=== PATIENT | female | born 1935 | race Caucasian/White ===

== ENCOUNTER → 2019-04-18 | Day surgery (SDC) | payer MEDICARE ==
[2019-04-14 11:37] LABS: BASOPHILS % 0.2 % (0.0-1.0); EOSINOPHILS # (AUTO) 0.1 (0.0-0.4); EOSINOPHILS % 1.6 % (0.0-6.0); HEMATOCRIT 41.1 % (34.2-44.1); HEMOGLOBIN 13.2 g/dL (12.0-16.0); LYMPHOCYTES # (AUTO) 2.6 (1.0-3.2); MEAN CORPUSCULAR HEMOGLOBIN 30.1 pg (28-32); MEAN CORPUSCULAR HGB CONC 32.1 g/dL (31-35); MEAN CORPUSCULAR VOLUME 93.8 fL (81-99); MONOCYTES # (AUTO) 0.5 (0.2-0.8); MONOCYTES % 6.2 % (4.4-11.3); NEUTROPHILS # (AUTO) 5.4 (2.1-6.9); NEUTROPHILS % 61.8 % (38.7-80.0); PLATELET COUNT 378 x10e3/uL (140-360); RED BLOOD COUNT 4.38 x10e6/uL (3.6-5.1); RED CELL DISTRIBUTION WIDTH 13.2 % (11.7-14.4)
[~2019-04-18] MED LIST: BACLOFEN10 MG PO; DIAZEPAM5 MG PO; FUROSEMIDE40 MG PO; GEMFIBROZIL600 MG PO; GLUCAGON FOR INJ 1 MG VIAL ONE; LEVOTHYROXINE100 MC1 PO; LIDOCAINE HCL 2% LOCAL INJ 5 ML SDV VIAL INJ ONE; METFORMIN HCL500 MG PO; METOPROLOL SUCC50 MG PO; NORCO 5-325 TA1 EACH PO; POTASSIUM CHLO10 ME1 PO; PROPOFOL IV EMULSION 10 MG/ML 50 ML VIAL ONE
--- OUTSIDE RECORDS SUMMARY | 2019-04-18 07:57 | XMS REPORT | Summary of Care ---
Author Author [facility] [place] [facility] [place] Address Unknown Phone Unavailable Encounter HQ Encntr_alias(FIN) [id number] Date(s): 08/07/15 - 08/07/15 [facility] [place] [address] [facility] [place] [id number] [phone] Discharge Disposition: Home Attending Physician: Santiago Velázquez MD Vital Signs No data available for this section Problem List No data available for this section Allergies, Adverse Reactions, Alerts No data available for this section Medications No data available for this section Results No data available for this section Immunizations No data available for this section Procedures No data available for this section Social History No data available for this section Assessment and Plan No data available for this section
--- OUTSIDE RECORDS SUMMARY | 2019-04-18 07:57 | XMS REPORT | Continuity of Care Document ---
Author Author [employer] Address Unknown Phone Unavailable Care Team Providers Care Lease Attendant Name Role Phone [employer] Information [employer] Unavailable Unavailable Problems Problem Status Onset Date Classification Date Reported Comments Source Hemoptysis 08/20/2018 03/07/2019 [facility] [place] LAP HERNIA REPAIR Active 12/20/2017 [facility] Unspecified abdominal hernia without obstruction or gangrene 11/13/2017 02/14/2018 [facility] [place] I10 - ESSENTIAL (PRIMARY) HYPERTENSI K43 Active 11/01/2017 [facility] [place] M25.579 - PAIN IN UNSPECIFIED ANKLE AND Active 08/07/2015 [facility] [place] Diabetes mellitus (disorder) Active Problem 03/11/2019 [facility] [place], [facility] [place] Hypothyroidism (disorder) Active Problem 03/11/2019 [facility], [facility] [place], [facility] [place] Morbid obesity (disorder) Active Problem 03/11/2019 [facility], [facility] [place], [facility] [place] Osteoarthritis (disorder) Active Problem 03/11/2019 [facility], [facility] [place], [facility] [place] Paraparesis (disorder) Active Problem 03/11/2019 [facility], [facility] [place] [place] Peripheral vascular disease (disorder) Active Problem 03/11/2019 [facility] [place] [place] Spinal stenosis (disorder) Active Problem 03/11/2019 [facility], [facility] [place], [facility] [place] Abnormal weight loss 03/07/2019 [facility] [place] Edema, unspecified 03/07/2019 [facility] [place] Personal history of nicotine dependence 03/07/2019 [facility] [place] Type 2 diabetes mellitus without complications 03/07/2019 [facility] [place] Acute pharyngitis, unspecified 03/07/2019 [facility] [place] Cellulitis of abdominal wall 02/14/2018 [facility] [place] Essential (primary) hypertension 02/14/2018 [facility] [place] Diverticulosis of intestine, part unspecified, without perforation or abscess without bleeding 02/14/2018 [facility] [place] Calculus of gallbladder without cholecystitis without obstruction 02/14/2018 [facility] [place] Medications Medication Details Route Status Patient Instructions Ordering Provider Order Date Source Acetaminophen 325 MG / Hydrocodone Bitartrate 5 MG Oral Tablet 1 tab, PO, Q4H, PRN Pain Score 1-3, 0 Refill(s) Active 12/30/2017 [facility] phenol 1 spray, Route: TOP, Daily, Drug form: SPRY, PRN Sore Throat, Start date: 12/29/17 16:17:00 CDT, Duration: 30 day, Stop date: 01/28/18 16:16:00 CDTNotes: WASTE: F/P - Black; E - [employer] Bin No Longer Active 12/29/2017 [facility] Benzocaine 15 MG / Menthol 3.6 MG Lozenge [Cepacol Sore Throat Pain Relief 15/3.6] 1 lozenge, Route: MUCOUS MEM, Drug Form: NICHOL, Dosing Weight 86.591, kg, Q2H, PRN Sore Throat, Start date: 12/29/17 16:17:00 CDT, Duration: 30 day, Stop date: 01/28/18 16:16:00 CDTNotes: Same as: Cepacol No Longer Active 12/29/2017 [facility] Valium 5 mg, 1 tab, Route: PO, Drug form: TAB, BID, Dosing Weight 86.591, kg, PRN as needed for anxiety, Start date: 12/29/17 9:54:00 CDT, Duration: 30 day, Stop date: 01/28/18 9:53:00 CDTNotes: (Same as: Valium) No Longer Active 12/29/2017 [facility] Baclofen 10 mg, 1 tab, Route: PO, Drug form: TAB, BID, Dosing Weight 86.591, kg, PRN Spasm, Start date: 12/29/17 9:54:00 CDT, Duration: 30 day, Stop date: 01/28/18 9:53:00 CDTNotes: (Same As: Lioresal) No Longer Active 12/29/2017 [facility] Furosemide 20 MG Oral Tablet 20 mg, 1 tab, Route: PO, Drug form: TAB, Daily, Dosing Weight 86.591, kg, Start date: 12/29/17 9:00:00 CDT, Duration: 30 day, Stop date: 01/27/18 9:00:00 CDTNotes: (Same as: Lasix) May cause GI upset. Give with food or milk. No Longer Active 12/29/2017 [facility] Thyroxine 100 microgram, 1 tab, Route: PO, Drug form: TAB, [id number], Dosing Weight 86.591, kg, Start date: 12/29/17 6:30:00 CDT, Duration: 30 day, Stop date: 01/27/18 6:30:00 CDTNotes: Take 1 hour before or 2 hours after meal; Enteral feeds may interefere with the absorption of this medication. (Same as:Levothroid, Synthroid) No Longer Active 12/29/2017 [facility] Enoxaparin 40 mg, 0.4 mL, Route: SUB-Q, Drug form: INJ, [id number], Dosing Weight 86.591, kg, Start date: 12/29/17 2:00:00 CDT, Stop date: 01/27/18 2:00:00 CDTNotes: (Same as: Lovenox) No Longer Active 12/29/2017 [facility] Potassium Chloride 10 mEq, 1 tab, Route: PO, Drug form: ERTAB, BID, Dosing Weight 86.591, kg, Start date: 12/28/17 17:00:00 CDT, Duration: 30 day, Stop date: 01/27/18 9:00:00 CDTNotes: (Same as: K-Dur 10) "Do Not Crush" With food and full glass of water No Longer Active 12/28/2017 [facility] Metformin hydrochloride 500 MG Oral Tablet 500 mg, 1 tab, Route: PO, Drug form: TAB, BID-Meals, Dosing Weight 86.591, kg, Start date: 12/28/17 17:00:00 CDT, Duration: 30 day, Stop date: 01/27/18 8:00:00 CDTNotes: (Same as: Glucophage) Take with meal No Longer Active 12/28/2017 [facility] Docusate Sodium 100 MG Oral Capsule 100 mg, 1 cap, Route: PO, Drug form: CAP, BID, Dosing Weight 86.591, kg, Start date: 12/28/17 17:00:00 CDT, Duration: 30 day, Stop date: 01/27/18 9:00:00 CDTNotes: (Same as: Colace) (Do Not Crush) No Longer Active 12/28/2017 [facility] morphine Sulfate 12 mg, 6 mL, Route: PO, Drug form: SOLN, Q4H, PRN Pain Score 7-10, Start date: 12/28/17 15:57:00 CDT, Duration: 30 day, Stop date: 01/27/18 15:56:00 CDTNotes: (Same as:MORPhine Sulfate) No Longer Active 12/28/2017 [facility] Hydralazine 10 mg, Route: IVP, Q20Min, Dosing Weight 86.591, kg, PRN Elevated BP, Start date: 12/28/17 14:27:00 CDT, Duration: 2 doses or times, Stop date: Limited # of times Inactive 12/28/2017 [facility] Hydromorphone 0.5 mg, Route: IVP, Q5Min, Dosing Weight 86.591, kg, PRN Pain Score 7-10, Start date: 12/28/17 14:27:00 CDT, Duration: 4 doses or times, Stop date: Limited # of times Inactive 12/28/2017 [facility] Fentanyl 50 microgram, Route: IVP, Q5Min, Dosing Weight 86.591, kg, PRN Pain Score 7-10, Priority: Routine, Start date: 12/28/17 14:27:00 CDT, Duration: 2 doses or times, Stop date: Limited # of times Inactive 12/28/2017 [facility] Flumazenil 0.2 mg, Route: IVP, PRN, Dosing Weight 86.591, kg, PRN Benzodiazepine Reversal, Initial dose, Start date: 12/28/17 14:27:00 CDT, Duration: 30 day, Stop date: 01/27/18 14:26:00 CDT Inactive 12/28/2017 [facility] Oxycodone 10 mg, Route: PO, Drug form: TAB, Q4H, Dosing Weight 86.591, kg, PRN Pain Score 7-10, Start date: 12/28/17 14:27:00 CDT, Duration: 30 day, Stop date: 01/27/18 14:26:00 CDT Inactive 12/28/2017 [facility] Promethazine 6.25 mg, Route: IVPB, ONCE, Dosing Weight 86.591, kg, PRN Nausea & Vomiting, Start date: 12/28/17 14:27:00 CDT Inactive 12/28/2017 [facility] Meperidine 12.5 mg, Route: IVP, Q30Min, Dosing Weight 86.591, kg, PRN Other -See Comment, For shivering, Start date: 12/28/17 14:27:00 CDT, Duration: 2 doses or times, Stop date: Limited # of times Inactive 12/28/2017 [facility] Naloxone 0.1 mg, Route: SUB-Q, Q6H, Dosing Weight 86.591, kg, PRN Itching, Start date: 12/28/17 14:27:00 CDT, Duration: 30 day, Stop date: 01/27/18 14:26:00 CDT Inactive 12/28/2017 [facility] Albuterol 0.83 MG/ML Inhalant Solution 2.49 mg, Route: NEB, Q20Min, Dosing Weight 86.591, kg, PRN Wheezing, Priority: Routine, Start date: 12/28/17 14:27:00 CDT, Duration: 30 day, Stop date: 01/27/18 14:26:00 CDT Inactive 12/28/2017 [facility] Diphenhydramine 12.5 mg, Route: IVP, Drug form: INJ, Q6H, Dosing Weight 86.591, kg, PRN Itching, Start date: 12/28/17 14:27:00 CDT, Duration: 30 day, Stop date: 01/27/18 14:26:00 CDT Inactive 12/28/2017 [facility] Ondansetron 4 mg, Route: IVP, ONCE, Dosing Weight 86.591, kg, PRN Nausea & Vomiting, Start date: 12/28/17 14:27:00 CDT Inactive 12/28/2017 [facility] Ketorolac 30 mg, Route: IVP, ONCE, Dosing Weight 86.591, kg, Start date: 12/28/17 14:27:00 CDT, Stop date: 12/28/17 14:27:00 CDT Inactive 12/28/2017 [facility] Acetaminophen 1,000 mg, Route: PO, Drug form: TAB, ONCE, Dosing Weight 86.591, kg, PRN Pain Score 1-3, Start date: 12/28/17 14:27:00 CDT Inactive 12/28/2017 [facility] Labetalol 10 mg, Route: IVP, Q5Min, Dosing Weight 86.591, kg, PRN Elevated BP, Start date: 12/28/17 14:27:00 CDT, Duration: 5 doses or times, Stop date: Limited # of times Inactive 12/28/2017 [facility] metoprolol (ANES) Route: IV, Drug form: INJ, ONCE, Stop date: 12/28/17 14:15:00 CDT Inactive 12/28/2017 [facility] metoclopramide (ANES) Route: IV, Drug form: INJ, ONCE, Stop date: 12/28/17 14:15:00 CDT Inactive 12/28/2017 [facility] neostigmine (ANES) Route: IV, Drug form: INJ, ONCE, Stop date: 12/28/17 14:14:00 CDT Inactive 12/28/2017 [facility] glycopyrrolate (ANES) Route: IV, Drug form: INJ, ONCE, Stop date: 12/28/17 14:14:00 CDT Inactive 12/28/2017 [facility] hydrALAZINE (ANES) Route: IV, Drug form: INJ, ONCE, Stop date: 12/28/17 14:04:00 CDT Inactive 12/28/2017 [facility] Diphenhydramine 25 mg, 1 tab, Route: PO, Drug form: TAB, Bedtime, Dosing Weight 86.591, kg, PRN Insomnia, Start date: 12/28/17 13:56:00 CDT, Duration: 30 day, Stop date: 01/27/18 13:55:00 CDT No Longer Active 12/28/2017 [facility] Ondansetron 4 mg, 1 tab, Route: PO, Drug form: TAB, Q6H, Dosing Weight 86.591, kg, PRN Nausea & Vomiting, Start date: 12/28/17 13:56:00 CDT, Duration: 30 day, Stop date: 01/27/18 13:55:00 CDTNotes: (Same as: Zofran) No Longer Active 12/28/2017 [facility] Morphine 4 mg, Route: IVP, Q2H, Dosing Weight 86.591, kg, PRN Pain Score 1-3, Start date: 12/28/17 13:56:00 CDT, Duration: 30 day, Stop date: 01/27/18 13:55:00 CDT Inactive 12/28/2017 [facility] Acetaminophen 325 MG / Hydrocodone Bitartrate 5 MG Oral Tablet 1 tab, Route: PO, Drug Form: TAB, Dosing Weight 86.591, kg, Q4H, PRN Pain Score 1-3, Start date: 12/28/17 13:56:00 CDT, Duration: 30 day, Stop date: 01/27/18 13:55:00 CDTNotes: (Same as: [place] 325/5) Do not exceed 4gm/day of acetaminophen. No Longer Active 12/28/2017 [facility] Acetaminophen 325 MG / Hydrocodone Bitartrate 10 MG Oral Tablet 1 tab, Route: PO, Drug Form: TAB, Dosing Weight 86.591, kg, Q4H, PRN Pain Score 4-6, Start date: 12/28/17 13:56:00 CDT, Duration: 30 day, Stop date: 01/27/18 13:55:00 CDTNotes: Do not exceed 4gm/day of acetaminophen. (Same as: [place] 325/10) No Longer Active 12/28/2017 [facility] acetaminophen (ANES) Route: IV, Drug form: INJ, ONCE, Stop date: 12/28/17 13:04:00 CDT Inactive 12/28/2017 [facility] midazolam (ANES) Route: IV, Drug form: SOLN, ONCE, Stop date: 12/28/17 13:04:00 CDT Inactive 12/28/2017 [facility] rocuronium (ANES) Route: IV, Drug form: INJ, ONCE, Stop date: 12/28/17 13:04:00 CDT Inactive 12/28/2017 [facility] fentaNYL (ANES) Route: IV, Drug form: INJ, ONCE, Stop date: 12/28/17 13:04:00 CDT Inactive 12/28/2017 [facility] lidocaine (ANES) Route: IV, Drug form: INJ, ONCE, Stop date: 12/28/17 13:04:00 CDT Inactive 12/28/2017 [facility] Amidate (ANES) Route: IV, Drug form: INJ, ONCE, Stop date: 12/28/17 13:04:00 CDT Inactive 12/28/2017 [facility] propofol (ANES) Route: IV, Drug form: INJ, ONCE, Stop date: 12/28/17 13:04:00 CDT Inactive 12/28/2017 [facility] ceFAZolin (ANES) Route: IV, Drug form: INJ, ONCE, Stop date: 12/28/17 12:59:00 CDT Inactive 12/28/2017 [facility] Lactated Ringers Injection IV (ANES) 1000 mL Route: IV, Total Volume: 1,000, Start date: 12/28/17 12:03:00 CDT, Stop date: 12/28/17 13:03:00 CDT Inactive 12/28/2017 [facility] diazepam 5 mg oral tablet 5 mg=1 tab, PO, BID, 0 Refill(s) Active 12/01/2017 [facility] metoprolol 100 mg oral tablet, extended release 100 mg=1 tab, PO, Daily, # 30 tab, 0 Refill(s) Active 12/01/2017 [facility] omega-3 polyunsaturated fatty acids PO, 0 Refill(s) Active 12/01/2017 [facility] Furosemide 20 MG Oral Tablet 20 mg=1 tab, PO, Daily, # 30 tab, 0 Refill(s) Active 12/01/2017 [facility] Potassium Chloride 0 Refill(s) Active 12/01/2017 [facility] levothyroxine 100 mcg (0.1 mg) oral tablet 100 microgram=1 tab, PO, Daily, # 30 tab, 0 Refill(s) Active 12/01/2017 [facility] Acetaminophen 325 MG / Hydrocodone Bitartrate 5 MG Oral Tablet 1 tab, PO, Q4H, PRN for pain, # 42 tab, 0 Refill(s) Active 12/01/2017 [facility] baclofen 10 mg oral tablet 10 mg=1 tab, PO, BID, 0 Refill(s) Active 12/01/2017 [facility] Gemfibrozil See Instructions, 100mg PO daily, 0 Refill(s) Active 12/01/2017 [facility] Metformin hydrochloride 500 MG Oral Tablet 500 mg=1 tab, PO, BID-Meals, # 60 tab, 0 Refill(s) Active 12/01/2017 [facility] Allergies, Adverse Reactions, Alerts Substance Category Reaction Severity Reaction type Status Date Reported Comments Source No Known Medication Allergies Assertion Drug allergy [facility] [place] Immunizations No Data Provided for This Section Results Order Name Results Value Reference Range Date Interpretation Comments Source CHEM PANEL eGFR 84 12/23/2017 Result Comment: The eGFR is calculated using the CKD-EPI formula. In most young, healthy individuals the eGFR will be >90 mL/min/1.73m2. The eGFR declines with age. An eGFR of 60-89 may be normal in some populations, particularly the elderly, for whom the CKD-EPI formula has not been extensively validated. Use of the eGFR is not recommended in the following populations:

Individuals with unstable creatinine concentrations, including patients and those with serious co-morbid conditions.

Patients with extremes in muscle mass or diet.

The data above are obtained from the National Kidney Disease Education Program (NKDEP) which additionally recommends that when the eGFR is used in patients with extremes of body mass index for purposes of drug dosing, the eGFR should be multiplied by the estimated BMI. [facility] CHEM PANEL Calcium Lvl 10.5 8.5 - 10.5 12/23/2017 [facility] CHEM PANEL AGAP 11.2 10.0 - 20.0 12/23/2017 [facility] CHEM PANEL Chloride Lvl 103 95 - 109 12/23/2017 [facility] CHEM PANEL Potassium Lvl 5.2 3.5 - 5.1 12/23/2017 [facility] CHEM PANEL CO2 32 24 - 32 12/23/2017 [facility] CHEM PANEL Creatinine Lvl 0.65 0.50 - 1.40 12/23/2017 [facility] CHEM PANEL Sodium Lvl 141 135 - 145 12/23/2017 [facility] CHEM PANEL Glucose Lvl 90 70 - 99 12/23/2017 [facility] CHEM PANEL BUN 17 7 - 22 12/23/2017 [facility] Pathology Reports No Data Provided for This Section Diagnostic Reports Report Value Date Source Chest w contrast CT EXAM: CT CHEST WITH CONTRAST DATE: 03/09/2019 12:30 CDT INDICATION: - lung nodule COMPARISON: CT chest 08/17/2018 TECHNIQUE: Volumetric CT of the chest is acquired following intravenous administration of contrast. Axial, coronal and sagittal images are provided. IV Contrast: 100 Omnipaque 300. DLP (mGy-cm): 1991 FINDINGS: Lines, tubes and hardware: None. Lower neck: The visible portions of the lower neck and thyroid are unremarkable. Axilla: Clear. Airway: Patent. Lungs and pleura: Few bilateral upper lobe pulmonary nodules remain and are less than 2 mm (annotated on images 39, 40, 72, 75, and 101. Few scattered thin- walled pulmonary cysts. No pleural effusion or pneumothorax. Mediastinum, cony and intrathoracic lymph nodes: Normal. Heart, pericardium and great vessels: Three-vessel coronary artery calcifications. The heart is normal in size. There is normal size of the pulmonary artery and ascending aorta. Severe dense calcified atherosclerotic plaque again involves the abdominal aorta. 5 mm fissural nodule is present at the right middle lobe on series 3, image 137. Few punctate nodules again remain in the apices bilaterally. Upper abdomen: There is a new well-circumscribed 1.6 cm hypodensity in the anterior pancreatic body. Thickening of the right adrenal gland. Cholelithiasis. Bones: No acute abnormality. Degenerative changes of the thoracic spine. Soft tissues: Normal. IMPRESSION: 1. Stable bilateral upper lobe punctate pulmonary nodules, annotated above measuring less than 2 mm, likely benign. 2. Severely dense atherosclerotic calcified plaque the abdominal aorta, unchanged. 3. Stable thickening of the right adrenal gland. 4. Larger cystic focus in the pancreatic body anteriorly, more conspicuous today measuring 1.5 cm. Recommendations: Single f/u in 1 year, preferably MRI. Consider decreasing interval if younger, and omitting if limited life expectancy. THEN: If stable: no further f/u. If growth: Imaging characterization, preferably MRI/MRCP. REFERENCE: Reta Cui et al. Managing Incidental Findings on Abdominal CT: White Paper of the ACR Incidental Findings Committee. J Am Dottie Radiol 2010; 7: [phone] 03/09/2019 [facility] Abdomen/Pelvis w IV contrast CT EXAM: CT ABDOMEN AND PELVIS WITH CONTRAST DATE: 03/09/2019 12:30 CDT INDICATION: - weight loss, anemia and lung nodules. ADDITIONAL INFORMATION: History of prior hernia repair and removal of cyst or fibroid from abdomen. COMPARISON: 11/08/2017. TECHNIQUE: Volumetric CT acquisition of the abdomen and pelvis after intravenous contrast. Axial, coronal and sagittal reconstructions. Postcontrast phases: Venous and delayed. IV contrast: 100 cc Omnipaque 300 Oral contrast: 450 cc Redicat. DLP: 1992 mGy-cm FINDINGS: Lines and tubes: None. Lower thorax: For details on the included portions of the lower thorax, please in the separate CT scan of the chest performed concurrently with this exam. Liver: Normal. Biliary tree: No intra- or extrahepatic biliary ductal dilation. Gallbladder: Cholelithiasis is present with predominantly noncalcified stones with no gallbladder wall thickening or pericholecystic inflammatory changes Pancreas: Atrophic and partially fatty replaced. No focal abnormalities. Spleen: Normal. Adrenals: Diffusely thickened bilaterally with no discrete nodules or masses. This finding is stable.. Kidneys and ureters: The kidneys enhance symmetrically and normally with prompt excretion of contrast material. No hydronephrosis, masses, or calculi are seen. The ureters are of normal course and caliber with no constricting or obstructing lesions. Bladder: Normal. Reproductive organs: Arcuate arterial calcifications are seen in the uterus. No adnexal abnormalities are seen. Calcified phleboliths are seen in the periuterine and periadnexal region. Gastrointestinal tract: A small sliding esophageal hiatal hernia is present. The stomach is otherwise normal in appearance. Scattered colonic diverticuli are present with no CT evidence of acute diverticulitis. Within the cecum along the anterior wall of (image 104 series 6 and image 103 series 400, there is a soft tissue density enhancing mass/wall thickening measuring 3.4 x 1.2 x 2.9 cm highly concerning for colonic malignancy. No distinct direct extension beyond the serosa of the colon is demonstrated. However, 3 separate lymph nodes measuring up to 6 mm in maximal diameter are seen anterior to the cecum/ascending colon on images 88 through 92 of series 6 concerning for possible metastatic disease. A fat density intraluminal filling defect measuring 0.8 x 1.2 x 1.5 cm is seen in the second portion of the duodenum on image 67 of series 6, increased in size from the prior exam. No other small bowel pathology is detected. No abnormalities of the rectum or anus are seen. Appendix: Not visualized. Peritoneum and retroperitoneum: No lymphadenopathy, ascites or free air. Lymph nodes: No abdominal or pelvic lymphadenopathy by size criteria is seen. Small anterior pericecal/pericolonic lymph nodes are present adjacent to the mass described above. Vasculature: Severe atherosclerotic vascular disease of the aortoiliac system is seen with severe aortic stenosis at multiple levels in the infrarenal abdominal aorta secondary to calcified atherosclerotic plaque up to approximately 90%. No occlusion is detected. No other abnormalities of the abdominal aorta, inferior vena cava, portal venous system, or other major visualized branches are detected. Bones: Multilevel spondylosis, disc space during, vacuum phenomenon, and endplate sclerosis are seen in the inferior thoracic and lumbar spine. No osseous destructive lesions are seen. Osteoarthritic changes are present at the symphysis pubis joint and in the bilateral hip joints, right-sided greater than left. Facet joint osteoarthritic changes are present in the lower lumbar spine.. Soft tissues/abdominal wall: A small fat-containing indirect left inguinal hernia is present with no surrounding or internal inflammatory changes. A large ventral abdominal wall hernia has been repaired in the interim. No recurrent or residual ventral hernia is detected. IMPRESSION: 1. Sessile 3.4 x 1.2 x 2.9 cm anterior cecal wall mass, new from the prior exam, and highly concerning for colonic malignancy. No direct extra serosal invasion is seen. However, several small lymph nodes are seen adjacent to this mass concerning for local metastatic disease. 2. Fat density mass within the second portion the duodenum measuring 0.8 x 1.2 x 1.5 cm, increased in size from the prior exam of 11/08/2017. Although most likely a benign mucosal/submucosal lipoma of the small bowel, with interim growth, a low-grade malignancy is not excluded. 3. Severe multifocal infrarenal abdominal aortic stenosis secondary to calcified atherosclerotic plaque formation. No occlusion is seen. 4. Colonic diverticulosis with no CT evidence of acute diverticulitis. 5. Cholelithiasis with no CT evidence of acute cholecystitis. 6. Small sliding esophageal hiatal hernia. 7. Status post prior ventral hernia repair. No recurrent ventral hernia is detected. A small fat-containing indirect left inguinal hernia is stable from the prior exam. 8. Bilateral adrenal gland thickening, as seen on the prior exam, and likely from bilateral mild adrenal hyperplasia. 9. For details on the included portions of the chest, please see the separate CT scan of the chest performed concurrently with this exam. 03/09/2019 [facility] Ext Lower Venous Doppler Bilat US EXAM: US BILATERAL LOWER EXTREMITY VENOUS DOPPLER DATE: 08/17/2018 12:52 WINDOWS ADMINISTRATOR INDICATION: - R60.9 Edema, unspecified. Right leg swelling for the past one year. Left leg swelling for the past 2 months. ADDITIONAL INFORMATION: None. COMPARISON: None. TECHNIQUE: Multiplanar grayscale, color Doppler and spectral Doppler ultrasound images of the bilateral lower extremity veins. FINDINGS: Right Thigh Veins: Common Femoral: Patent. Femoral (SFV): Patent. Popliteal: Patent. Proximal Greater Saphenous: Patent. Deep Femoral Veins: Patent. Right Calf Veins: Limited evaluation secondary to edema Paired Peroneal: One of the two paired veins is patent with the other not seen. Posterior Tibial Calf: One of the two paired veins is patent with the other not seen. Left Thigh Veins: Common Femoral: Patent. Femoral (SFV): Patent. Popliteal: Patent. Proximal Greater Saphenous: Patent. Deep Femoral Veins: Patent. Left Calf Veins: Limited evaluation secondary to edema Paired Peroneal: Not visualized. Posterior Tibial Calf: Patent. IMPRESSION: 1. No deep venous thrombosis in the bilateral thighs. 2. Visualized veins of the calves are patent with limited evaluation, as listed above, secondary to soft tissue edema in both calves. 08/17/2018 [facility] Sinus paranasal series DX EXAM: X-RAY PARANASAL SINUSES 3 VIEWS DATE: 08/17/2018 12:41 WINDOWS ADMINISTRATOR INDICATION: - HEMOPTYSIS COMPARISON: None TECHNIQUE: [place], [place], and lateral views FINDINGS: No mucoperiosteal thickening, air-fluid levels, or soft tissue masses are seen involving the well aerated paranasal sinuses. Nasal septum is midline. Mastoid air cells are well aerated. Dental hardware is visualized. IMPRESSION: No radiographic evidence of sinusitis. The paranasal sinuses and mastoid air cells are well aerated. 08/17/2018 [facility] Chest 2 views DX EXAM: XR CHEST 2 VIEWS DATE: 08/17/2018 12:40 WINDOWS ADMINISTRATOR INDICATION: - HEMOPTYSIS COMPARISON: 05/19/2011 TECHNIQUE: PA and lateral chest radiographs FINDINGS: Mild linear subsegmental atelectasis is seen in the left retrocardiac region best seen on the PA view. No other lung parenchymal or pleural abnormalities are seen. Cony and pulmonary vasculature are normal. Cardiomediastinal silhouette is normal in appearance. Atherosclerotic calcifications are seen in the aortic arch. No acute bony abnormality is identified. Thoracolumbar spine is noted be moderately kyphotic with multilevel spondylosis and disc space narrowing. Degenerative enthesopathic changes are seen in the bilateral humeral greater tuberosity rotator cuff insertion sites. IMPRESSION: 1. Mild linear subsegmental atelectasis in the left lung base. 2. Increase in atherosclerotic vascular disease of the aortic arch. 3. 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 TECHNIQUE: Volumetric CT acquisition of the chest was obtained following the intravenous administration of contrast. Sagittal, coronal and axial MIP reformatted images were reconstructed and obtained at the workstation. I.V. Contrast Dose: 100 mL Omnipaque 300 contrast Total Exam DLP: 602.08 mGy-- cm COMPARISON: No prior chest CT is available for comparison. FINDINGS: Heart is not enlarged. Aortic atherosclerosis with calcifications. Ascending aorta does not measure enlarged. The pulmonary trunk is borderline sized at 29 mm. Diffuse calcifications of the left anterior descending, left circumflex and right coronary arteries. No pericardial effusion. There are no pleural effusions. No enlarged hilar, mediastinal or axillary lymph nodes. Limited imaging through the upper abdomen shows severe calcifications of the abdominal aorta resulting in significant narrowing of the lumen. Scattered arterial calcifications throughout the abdomen. Right adrenal gland is thickened. Dependent sludge and/or cholelithiasis noted in the gallbladder. Trachea and central bronchi are clear. Dependent atelectasis in the bilateral lower lobes. A few punctate pulmonary nodules are noted in both lung apices, predominantly in the right upper lobe. Calcified granuloma in the lingula. No pulmonary consolidation. Advanced degenerative changes of the thoracic spine with disc space narrowing, subchondral sclerosis, marginal osteophytes and several vacuum disks. There is curvature of the thoracic spine. IMPRESSION: 1. Aortic atherosclerosis with calcifications. Diffuse coronary artery calcifications. 2. Limited imaging through the upper abdomen shows severe calcifications of the abdominal aorta resulting in significant narrowing of the lumen. 3. A few punctate pulmonary nodules are noted in both upper lobes, mostly the right upper lobe. -- According to the Fleischner Society 2017 Guidelines for management of pulmonary nodules, a low risk patient with multiple nodules measuring less than 6 mm does not require routine follow-up. For a high risk patient, multiple nodules measuring less than 6 mm can be followed with a repeat chest CT at 12 months. 4. Advanced degenerative changes of the thoracic spine. 5. Dependent sludge and/or cholelithiasis in the gallbladder. 08/17/2018 [facility] Abdomen/Pelvis w/wo IV contrast CT EXAM: CT ABDOMEN AND PELVIS WITH AND WITHOUT CONTRAST DATE: 11/08/2017 12:59 PM CDT INDICATION: - abdominal hernia; K43.9 Ventral hernia without obstruction or gangrene; L03.311 Cellulitis of abdominal wall ADDITIONAL INFORMATION: None. COMPARISON: None. TECHNIQUE: Volumetric CT acquisition of the abdomen and pelvis before and after the intravenous administration contrast. Axial, coronal and sagittal reconstructions. Postcontrast phases: Venous and delayed IV contrast: 100 mL Omnipaque Oral contrast: Omni mix CT Radiation Dose DLP 1966 mGy-cm AEC, mA/kV adjustment by patient size, and/or iterative reconstruction technique were used, per departmental dose-optimization program. FINDINGS: Lines and tubes: None. Lower thorax: Unremarkable. Liver and biliary tree: Normal. Gallbladder: Contains sludge and/or gallstones. Pancreas: Normal. Spleen: Normal. Adrenals: Normal. Kidneys and ureters: Possible punctate nonobstructing left renal calculus. Otherwise unremarkable. No hydronephrosis. Bladder: Normal. Reproductive organs: Atrophic Gastrointestinal tract: Colonic diverticulosis. Otherwise unremarkable with normal caliber. Appendix: Not visualized Peritoneum and retroperitoneum: No ascites or free air. Lymph nodes: No pathologic adenopathy. Vasculature: Severe atherosclerotic calcification throughout the aorta and iliac arteries Bones: No acute abnormality. Moderate to severe multilevel degenerative disease throughout the visualized spine Soft tissues: Large periumbilical small bowel containing hernia with a 4.7 x 3.4 cm neck without evidence of incarceration IMPRESSION: 1. Large periumbilical small bowel containing hernia. 2. Colonic diverticulosis. 3. Cholelithiasis. 11/08/2017 [facility] Foot series DX Left Foot History: Pain Comparison: None Findings: The left foot first toe proximal phalanx has a lucent fracture line at the first extending to the first MTP joint. Fracture corresponds to a small fragment at the medial aspect of the proximal phalanx. There is no significant displacement. The fracture line appears lucent and is approximately 1 mm wide. The first MTP sesamoids are unremarkable. The metatarsals are intact. The plantar arch is maintained. The hindfoot is normal. The joint spaces are maintained for age. No radiopaque foreign bodies seen. Impression: Left foot fracture at the first toe proximal phalanx. A medial fragment is fractured extending to the first MTP joint without displacement. 08/07/2015 [facility] Ankle 3 views DX LEFT ANKLE X-RAY EXAM, 3 VIEWS History: 80-year-old with ankle pain. Comparison: None. Findings: No acute fracture or subluxation seen. The medial and lateral malleoli are normal. The posterior tibia is normal. The ankle joint space is well maintained. Soft tissues surrounding the ankle are diffuse swollen in particular at the medial malleolus suggesting an ankle sprain. IMPRESSION: No fracture or acute bone injury. Soft tissue swelling around ankle consistent with a ankle sprain. 08/07/2015 [facility] Consultation Notes No Data Provided for This Section Discharge Summaries No Data Provided for This Section History and Physicals No Data Provided for This Section Vital Signs Vital Sign Value Date Comments Source Height 157.48 cm 01/12/2018 [facility] Systolic (mm Hg) 130 01/12/2018 [facility] Diastolic (mm Hg) 74 01/12/2018 [facility] Heart Rate 87 01/12/2018 [facility] Temperature Oral (F) 98.0 F 01/12/2018 [facility] Respitory Rate 16 12/30/2017 [facility] Systolic (mm Hg) 147 12/30/2017 [facility] Diastolic (mm Hg) 74 12/30/2017 [facility] Respitory Rate 16 12/30/2017 [facility] Heart Rate 92 12/30/2017 [facility] Temperature Oral (F) 98.0 F 12/30/2017 [facility] Respitory Rate 20 12/30/2017 [facility] Systolic (mm Hg) 154 12/30/2017 [facility] Diastolic (mm Hg) 78 12/30/2017 [facility] Heart Rate 105 12/30/2017 [facility] Temperature Oral (F) 99.7 F 12/30/2017 [facility] Systolic (mm Hg) 104 12/30/2017 [facility] Diastolic (mm Hg) 62 12/30/2017 [facility] Temperature Oral (F) 99.4 F 12/30/2017 [facility] Heart Rate 103 12/30/2017 [facility] Weight 86.506 12/30/2017 [facility] BMI Calculated 36.03 12/30/2017 [facility] Height 154.94 cm 12/30/2017 [facility] Weight 86.591 12/23/2017 [facility] BMI Calculated 36.07 12/23/2017 [facility] Height 154.94 cm 12/23/2017 [facility] Temperature Oral (F) 97.9 F 12/01/2017 [facility] Heart Rate 76 12/01/2017 [facility] Height 154.94 cm 12/01/2017 [facility] Weight 88.636 12/01/2017 [facility] BMI Calculated 36.92 12/01/2017 [facility] Systolic (mm Hg) 128 12/01/2017 [facility] Diastolic (mm Hg) 74 12/01/2017 [facility] Encounters Location Location Details Encounter Type Encounter Number Reason For Visit Attending Provider ADM Date DC Date Status Source [facility] [place] [facility] [id number] Santiago Velázquez 08/07/2015 08/08/2015 [facility] [place] [facility] [place] [facility] [id number] Soraya Redding 11/08/2017 11/09/2017 [facility] [place] Outpatient [id number] [facility] 12/01/2017 [facility] General Surgery [facility] Outpatient [id number] [facility] 12/01/2017 12/02/2017 [facility] Outpatient [id number] [facility] 12/28/2017 [facility] Observation [id number] [facility] 12/28/2017 12/30/2017 [facility] Outpatient [id number] [facility] 01/12/2018 [facility] General Surgery [facility] Outpatient [id number] [facility] 01/12/2018 01/13/2018 [facility] [place] [facility] [id number] Soraya Redding 08/17/2018 08/18/2018 [facility] [place] [facility] [place] [facility] [id number] Soraya Redding 03/09/2019 03/10/2019 [facility] Procedures Procedure Code Date Perfomer Comments Source Laparoscopic repair of ventral hernia with prosthesis [id number] 12/28/2017 [facility] [place] [place] Diabetic retinal eye exam [id number] 08/09/2017 [facility] [place], [facility] [place] Bone density scan [id number] 08/09/2016 [facility] [place], [facility] [place] Mammogram [id number] 08/09/2016 [facility] [place], [facility] [place] Colonoscopy [id number] 08/09/2013 [facility] [place], [facility] [place] Appendectomy [id number] [facility], [facility] [place] [place] Cataract surgery [id number] [facility], [facility] [place],[facility], [facility] [place] Tonsillectomy [id number] [facility], [facility] [place],[facility], [facility] [place] Assessment and Plan No Data Provided for This Section Plan of Care No Data Provided for This Section Social History Social History Date Source Social History TypeResponse Alcohol Never Smoking Status Former smoker; Exposure to Tobacco Smoke None; Cigarette Smoking Last 365 Days No; Reg Smoking Cessation Counseling No1 entered on: 01/12/18 1Quit smoking 16 years ago. 12/23/2017 [facility] Social History TypeResponse Alcohol Never Smoking Status Former smoker; Exposure to Tobacco Smoke None; Cigarette Smoking Last 365 Days No; Reg Smoking Cessation Counseling No1 entered on: 01/12/18 1Quit smoking 16 years ago. 12/23/2017 [facility] [place] Social History TypeResponse Alcohol Never Smoking Status Former smoker; Exposure to Tobacco Smoke None; Cigarette Smoking Last 365 Days No; Reg Smoking Cessation Counseling No1 entered on: 01/12/18 1Quit smoking 16 years ago. 12/23/2017 [facility] Social History TypeResponse Alcohol Never Smoking Status Never smoker; Exposure to Tobacco Smoke None; Cigarette Smoking Last 365 Days No; Reg Smoking Cessation Counseling No entered on: 12/28/17 12/23/2017 [facility] Family History No Data Provided for This Section Advance Directives No Data Provided for This Section Functional Status No Data Provided for This Section
--- OUTSIDE RECORDS SUMMARY | 2019-04-18 07:58 | XMS REPORT | Summary of Care ---
Author Author [facility] Organization [facility] Address Unknown Phone Unavailable Encounter HQ Maricruz(FIN) [id number] Date(s): 12/28/17 - 12/30/17 [facility] [address] [place] [address]- [phone] Discharge Disposition: Retirement Facility Attending Physician: Stanley Landin MD Referring Physician: Stanley Landin MD Vital Signs 1 2 3 Most recent to oldest [Reference Range]: 154.94 cm (12/29/17 9:40 PM) 154.94 cm (12/23/17 3:36 PM) Height 98.0 DegF (12/30/17 7:22 AM) 99.7 DegF *HI* (12/30/17 3:29 AM) 99.4 DegF *HI* (12/29/17 11:08 PM) Temperature Oral [96.4-99.1 DegF] 147/74 mmHg *HI* (12/30/17 7:22 AM) 154/78 mmHg *HI* (12/30/17 3:29 AM) 104/62 mmHg (12/29/17 11:08 PM) Blood Pressure [90-140/60-90 mmHg] 16 BRMIN (12/30/17 7:28 AM) 16 BRMIN (12/30/17 7:22 AM) 20 BRMIN (12/30/17 3:29 AM) Respiratory Rate [14-20 BRMIN] 92 bpm (12/30/17 7:22 AM) 105 bpm *HI* (12/30/17 3:29 AM) 103 bpm *HI* (12/29/17 11:08 PM) Peripheral Pulse Rate [60-100 bpm] 86.506 kg (12/29/17 9:40 PM) 86.591 kg (12/23/17 3:36 PM) Weight 36.03 m2 (12/29/17 9:40 PM) 36.07 m2 (12/23/17 3:36 PM) Body Mass Index Problem List Condition Effective Dates Status Health Status Informant Diabetes(Confirmed) Active Hypothyroid(Confirme Active d) Morbid Active obesity(Confirmed) Degenerative joint Active disease(Confirmed) Weakness of both Active lower extremities(Confirme d) Poor circulation of Active extremity(Confirmed) Spinal Active stenosis(Confirmed) Allergies, Adverse Reactions, Alerts Substance Reaction Severity Status NKDA Active Medications acetaminophen (ANES) Route: IV, Drug form: INJ, ONCE, Stop date: 12/28/17 13:04:00 CDT Start Date: 12/28/17 Stop Date: 12/28/17 Status: Completed acetaminophen-hydrocodone 325 mg-10 mg oral tablet 1 tab, Route: PO, Drug Form: TAB, Dosing Weight 86.591, kg, Q4H, PRN Pain Score 4-6, Start date: 12/28/17 13:56:00 CDT, Duration: 30 day, Stop date: 01/27/18 13 :55:00 CDT Notes: Do not exceed 4gm/day of acetaminophen. (Same as: Mystic 325/10) Start Date: 12/28/17 Stop Date: 12/30/17 Status: Discontinued acetaminophen-hydrocodone 325 mg-5 mg oral tablet 1 tab, PO, Q4H, PRN Pain Score 1-3, 0 Refill(s) Start Date: 12/30/17 Status: Ordered acetaminophen-hydrocodone 325 mg-5 mg oral tablet 1 tab, Route: PO, Drug Form: TAB, Dosing Weight 86.591, kg, Q4H, PRN Pain Score 1-3, Start date: 12/28/17 13:56:00 CDT, Duration: 30 day, Stop date: 01/27/18 13 :55:00 CDT Notes: (Same as: Mystic 325/5) Do not exceed 4gm/day of acetaminophen. Start Date: 12/28/17 Stop Date: 12/30/17 Status: Discontinued Amidate (ANES) Route: IV, Drug form: INJ, ONCE, Stop date: 12/28/17 13:04:00 CDT Start Date: 12/28/17 Stop Date: 12/28/17 Status: Completed ANES acetaminophen 1,000 mg, Route: PO, Drug form: TAB, ONCE, Dosing Weight 86.591, kg, PRN Pain Sc ore 1-3, Start date: 12/28/17 14:27:00 CDT Start Date: 12/28/17 Stop Date: 12/28/17 Status: Discontinued ANES albuterol 0.083% inhalation solution 2.49 mg, Route: NEB, Q20Min, Dosing Weight 86.591, kg, PRN Wheezing, Priority: R outine, Start date: 12/28/17 14:27:00 CDT, Duration: 30 day, Stop date: 01/27/18 14:26:00 CDT Start Date: 12/28/17 Stop Date: 12/28/17 Status: Discontinued ANES diphenhydrAMINE 12.5 mg, Route: IVP, Drug form: INJ, Q6H, Dosing Weight 86.591, kg, PRN Itching, Start date: 12/28/17 14:27:00 CDT, Duration: 30 day, Stop date: 01/27/18 14:26: 00 CDT Start Date: 12/28/17 Stop Date: 12/28/17 Status: Discontinued ANES fentaNYL 50 microgram, Route: IVP, Q5Min, Dosing Weight 86.591, kg, PRN Pain Score 7-10, Priority: Routine, Start date: 12/28/17 14:27:00 CDT, Duration: 2 doses or times , Stop date: Limited # of times Start Date: 12/28/17 Stop Date: 12/28/17 Status: Discontinued ANES fentaNYL 25 microgram, Route: IVP, Q5Min, Dosing Weight 86.591, kg, PRN Pain Score 4-6, P riority: Routine, Start date: 12/28/17 14:27:00 CDT, Duration: 4 doses or times, Stop date: Limited # of times Start Date: 12/28/17 Stop Date: 12/28/17 Status: Discontinued ANES flumazenil 0.2 mg, Route: IVP, PRN, Dosing Weight 86.591, kg, PRN Benzodiazepine Reversal, Initial dose, Start date: 12/28/17 14:27:00 CDT, Duration: 30 day, Stop date: 14:26:00 CDT Start Date: 12/28/17 Stop Date: 12/28/17 Status: Discontinued ANES hydrALAZINE 10 mg, Route: IVP, Q20Min, Dosing Weight 86.591, kg, PRN Elevated BP, Start date : 12/28/17 14:27:00 CDT, Duration: 2 doses or times, Stop date: Limited # of maddy es Start Date: 12/28/17 Stop Date: 12/28/17 Status: Discontinued ANES HYDROmorphone 0.5 mg, Route: IVP, Q5Min, Dosing Weight 86.591, kg, PRN Pain Score 7-10, Start date: 12/28/17 14:27:00 CDT, Duration: 4 doses or times, Stop date: Limited # of times Start Date: 12/28/17 Stop Date: 12/28/17 Status: Discontinued ANES ketOROLAC 30 mg, Route: IVP, ONCE, Dosing Weight 86.591, kg, Start date: 12/28/17 14:27:00 CDT, Stop date: 12/28/17 14:27:00 CDT Start Date: 12/28/17 Stop Date: 12/28/17 Status: Discontinued ANES labetalol 10 mg, Route: IVP, Q5Min, Dosing Weight 86.591, kg, PRN Elevated BP, Start date: 12/28/17 14:27:00 CDT, Duration: 5 doses or times, Stop date: Limited # of times Start Date: 12/28/17 Stop Date: 12/28/17 Status: Discontinued ANES meperidine 12.5 mg, Route: IVP, Q30Min, Dosing Weight 86.591, kg, PRN Other -See Comment, F or shivering, Start date: 12/28/17 14:27:00 CDT, Duration: 2 doses or times, Sto p date: Limited # of times Start Date: 12/28/17 Stop Date: 12/28/17 Status: Discontinued ANES naloxone 0.1 mg, Route: SUB-Q, Q6H, Dosing Weight 86.591, kg, PRN Itching, Start date: 14:27:00 CDT, Duration: 30 day, Stop date: 01/27/18 14:26:00 CDT Start Date: 12/28/17 Stop Date: 12/28/17 Status: Discontinued ANES naloxone 0.4 mg, Route: IVP, Q2MIN, Dosing Weight 86.591, kg, PRN Narcotic Reversal, Star t date: 12/28/17 14:27:00 CDT, Duration: 8 doses or times, Stop date: Limited # of times Start Date: 12/28/17 Stop Date: 12/28/17 Status: Discontinued ANES ondansetron 4 mg, Route: IVP, ONCE, Dosing Weight 86.591, kg, PRN Nausea & Vomiting, Start date: 12/28/17 14:27:00 CDT Start Date: 12/28/17 Stop Date: 12/28/17 Status: Discontinued ANES oxyCODONE 10 mg, Route: PO, Drug form: TAB, Q4H, Dosing Weight 86.591, kg, PRN Pain Score 7-10, Start date: 12/28/17 14:27:00 CDT, Duration: 30 day, Stop date: 01/27/18 1 4:26:00 CDT Start Date: 12/28/17 Stop Date: 12/28/17 Status: Discontinued ANES oxyCODONE 5 mg, Route: PO, Drug form: TAB, Q4H, Dosing Weight 86.591, kg, PRN Pain Score 4 -6, Start date: 12/28/17 14:27:00 CDT, Duration: 30 day, Stop date: 01/27/18 14: 26:00 CDT Start Date: 12/28/17 Stop Date: 12/28/17 Status: Discontinued ANES promethazine 6.25 mg, Route: IVPB, ONCE, Dosing Weight 86.591, kg, PRN Nausea & Vomiting, Start date: 12/28/17 14:27:00 CDT Start Date: 12/28/17 Stop Date: 12/28/17 Status: Discontinued baclofen 10 mg, 1 tab, Route: PO, Drug form: TAB, BID, Dosing Weight 86.591, kg, PRN Spas m, Start date: 12/29/17 9:54:00 CDT, Duration: 30 day, Stop date: 01/28/18 9:53: 00 CDT Notes: (Same As: Lulu) Start Date: 12/29/17 Stop Date: 12/30/17 Status: Discontinued ceFAZolin (ANES) Route: IV, Drug form: INJ, ONCE, Stop date: 12/28/17 12:59:00 CDT Start Date: 12/28/17 Stop Date: 12/28/17 Status: Completed Cepacol Sore Throat 15 mg-3.6 mg mucous membrane lozenge 1 lozenge, Route: MUCOUS MEM, Drug Form: NICHOL, Dosing Weight 86.591, kg, Q2H, PRN Sore Throat, Start date: 12/29/17 16:17:00 CDT, Duration: 30 day, Stop date: 16:16:00 CDT Notes: Same as: Cepacol Start Date: 12/29/17 Stop Date: 12/30/17 Status: Discontinued Chloraseptic 1.4% spray 1 spray, Route: TOP, Daily, Drug form: SPRY, PRN Sore Throat, Start date: 16:17:00 CDT, Duration: 30 day, Stop date: 01/28/18 16:16:00 CDT Notes: WASTE: F/P - Black; E - [employer] Trash Bin Start Date: 12/29/17 Stop Date: 12/30/17 Status: Discontinued diphenhydrAMINE 25 mg, 1 tab, Route: PO, Drug form: TAB, Bedtime, Dosing Weight 86.591, kg, PRN Insomnia, Start date: 12/28/17 13:56:00 CDT, Duration: 30 day, Stop date: 13:55:00 CDT Start Date: 12/28/17 Stop Date: 12/30/17 Status: Discontinued docusate sodium 100 mg oral capsule 100 mg, 1 cap, Route: PO, Drug form: CAP, BID, Dosing Weight 86.591, kg, Start d ate: 12/28/17 17:00:00 CDT, Duration: 30 day, Stop date: 01/27/18 9:00:00 CDT Notes: (Same as: Colace) (Do Not Crush) Start Date: 12/28/17 Stop Date: 12/30/17 Status: Discontinued enoxaparin 40 mg, 0.4 mL, Route: SUB-Q, Drug form: INJ, [id number], Dosing Weight 86.591, kg, Start date: 12/29/17 2:00:00 CDT, Stop date: 01/27/18 2:00:00 CDT Notes: (Same as: Lovenox) Start Date: 12/29/17 Stop Date: 12/30/17 Status: Discontinued fentaNYL (ANES) Route: IV, Drug form: INJ, ONCE, Stop date: 12/28/17 13:04:00 CDT Start Date: 12/28/17 Stop Date: 12/28/17 Status: Completed furosemide 20 mg oral tablet 20 mg, 1 tab, Route: PO, Drug form: TAB, Daily, Dosing Weight 86.591, kg, Start date: 12/29/17 9:00:00 CDT, Duration: 30 day, Stop date: 01/27/18 9:00:00 CDT Notes: (Same as: Lasix) May cause GI upset. Give with food or milk. Start Date: 12/29/17 Stop Date: 12/30/17 Status: Discontinued glycopyrrolate (ANES) Route: IV, Drug form: INJ, ONCE, Stop date: 12/28/17 14:14:00 CDT Start Date: 12/28/17 Stop Date: 12/28/17 Status: Completed hydrALAZINE (ANES) Route: IV, Drug form: INJ, ONCE, Stop date: 12/28/17 14:04:00 CDT Start Date: 12/28/17 Stop Date: 12/28/17 Status: Completed Lactated Ringers Injection IV (ANES) 1000 mL Route: IV, Total Volume: 1,000, Start date: 12/28/17 12:03:00 CDT, Stop date: 13:03:00 CDT Start Date: 12/28/17 Stop Date: 12/28/17 Status: Completed levothyroxine 100 microgram, 1 tab, Route: PO, Drug form: TAB, Q630AM, Dosing Weight 86.591, k g, Start date: 12/29/17 6:30:00 CDT, Duration: 30 day, Stop date: 01/27/18 6:30: 00 CDT Notes: Take 1 hour before or 2 hours after meal; Enteral feeds may interefere wi th the absorption of this medication. (Same as:Levothroid, Synthroid) Start Date: 12/29/17 Stop Date: 12/30/17 Status: Discontinued lidocaine (ANES) Route: IV, Drug form: INJ, ONCE, Stop date: 12/28/17 13:04:00 CDT Start Date: 12/28/17 Stop Date: 12/28/17 Status: Completed metFORMIN 500 mg oral tablet 500 mg, 1 tab, Route: PO, Drug form: TAB, BID-Meals, Dosing Weight 86.591, kg, S tart date: 12/28/17 17:00:00 CDT, Duration: 30 day, Stop date: 01/27/18 8:00:00 CDT Notes: (Same as: Glucophage) Take with meal Start Date: 12/28/17 Stop Date: 12/30/17 Status: Discontinued metoclopramide (ANES) Route: IV, Drug form: INJ, ONCE, Stop date: 12/28/17 14:15:00 CDT Start Date: 12/28/17 Stop Date: 12/28/17 Status: Completed metoprolol (ANES) Route: IV, Drug form: INJ, ONCE, Stop date: 12/28/17 14:15:00 CDT Start Date: 12/28/17 Stop Date: 12/28/17 Status: Completed midazolam (ANES) Route: IV, Drug form: SOLN, ONCE, Stop date: 12/28/17 13:04:00 CDT Start Date: 12/28/17 Stop Date: 12/28/17 Status: Completed morphine Sulfate 12 mg, 6 mL, Route: PO, Drug form: SOLN, Q4H, PRN Pain Score 7-10, Start date: 0 12/28/17 15:57:00 CDT, Duration: 30 day, Stop date: 01/27/18 15:56:00 CDT Notes: (Same as:MORPhine Sulfate) Start Date: 12/28/17 Stop Date: 12/30/17 Status: Discontinued morphine Sulfate 4 mg, Route: IVP, Q2H, Dosing Weight 86.591, kg, PRN Pain Score 1-3, Start date: 12/28/17 13:56:00 CDT, Duration: 30 day, Stop date: 01/27/18 13:55:00 CDT Start Date: 12/28/17 Stop Date: 12/28/17 Status: Discontinued neostigmine (ANES) Route: IV, Drug form: INJ, ONCE, Stop date: 12/28/17 14:14:00 CDT Start Date: 12/28/17 Stop Date: 12/28/17 Status: Completed ondansetron 4 mg, 1 tab, Route: PO, Drug form: TAB, Q6H, Dosing Weight 86.591, kg, PRN Nause a & Vomiting, Start date: 12/28/17 13:56:00 CDT, Duration: 30 day, Stop date: 01/27/18 13:55:00 CDT Notes: (Same as: Zofran) Start Date: 12/28/17 Stop Date: 12/30/17 Status: Discontinued potassium chloride 10 mEq, 1 tab, Route: PO, Drug form: ERTAB, BID, Dosing Weight 86.591, kg, Start date: 12/28/17 17:00:00 CDT, Duration: 30 day, Stop date: 01/27/18 9:00:00 CDT Notes: (Same as: K-Dur 10)"Do Not Crush" With food and full glass of water Start Date: 12/28/17 Stop Date: 12/30/17 Status: Discontinued propofol (ANES) Route: IV, Drug form: INJ, ONCE, Stop date: 12/28/17 13:04:00 CDT Start Date: 12/28/17 Stop Date: 12/28/17 Status: Completed rocuronium (ANES) Route: IV, Drug form: INJ, ONCE, Stop date: 12/28/17 13:04:00 CDT Start Date: 12/28/17 Stop Date: 12/28/17 Status: Completed Valium 5 mg, 1 tab, Route: PO, Drug form: TAB, BID, Dosing Weight 86.591, kg, PRN as ne eded for anxiety, Start date: 12/29/17 9:54:00 CDT, Duration: 30 day, Stop date: 01/28/18 9:53:00 CDT Notes: (Same as: Valium) Start Date: 12/29/17 Stop Date: 12/30/17 Status: Discontinued Results ELECTROLYTES Most recent to 1 oldest [Reference Range]: Sodium Lvl [135-145 141 mEq/L mEq/L] (12/23/17 3:50 PM) Potassium Lvl 5.2 mEq/L [3.5-5.1 mEq/L] *HI* (12/23/17 3:50 PM) Chloride Lvl [95-109 103 mEq/L mEq/L] (12/23/17 3:50 PM) CO2 [24-32 mEq/L] 32 mEq/L (12/23/17 3:50 PM) AGAP [10.0-20.0 11.2 mEq/L mEq/L] (12/23/17 3:50 PM) CHEM PANEL Most recent to 1 oldest [Reference Range]: Creatinine Lvl 0.65 mg/dL [0.50-1.40 mg/dL] (12/23/17 3:50 PM) eGFR 84 mL/min/1.73m2 1 *NA* (12/23/17 3:50 PM) BUN [7-22 mg/dL] 17 mg/dL (12/23/17 3:50 PM) Glucose Lvl [70-99 90 mg/dL mg/dL] (12/23/17 3:50 PM) Calcium Lvl 10.5 mg/dL [8.5-10.5 mg/dL] (12/23/17 3:50 PM) 1Result Comment: The eGFR is calculated using the [...] from the National Kidney Disease Education Program ( NKDEP) which additionally recommends that when the eGFR is used in patients with extremes of body mass index for purposes of drug dosing, the eGFR should be mul tiplied by the estimated BMI. Immunizations No data available for this section Procedures Procedure Date Related Diagnosis Body Site Status Diabetic retinal eye exam 2018 Completed Bone density scan 2017 Completed Mammogram 2017 Completed Colonoscopy 2014 Completed Appendectomy Completed Cataract surgery Completed Tonsillectomy Completed Social History Social History Type Response Alcohol Never Smoking Status Never smoker; Exposure to Tobacco Smoke None; Cigarette Smoking Last 365 Days No; Reg Smoking Cessation Counseling No entered on: 12/28/17 Assessment and Plan No data available for this section
--- OUTSIDE RECORDS SUMMARY | 2019-04-18 07:58 | XMS REPORT | Summary of Care ---
Author Author [facility] General Surgery [facility] Organization [facility] General Surgery [facility] Address Unknown Phone Unavailable Encounter HQ Maricruz(FIN) [id number] Date(s): 12/01/17 - 12/01/17 [facility] General Surgery [facility] [address], [address] [place] [address] [phone] Discharge Disposition: Home or Self Care Attending Physician: Stanley Landin MD Referring Physician: Soraya Redding MD Vital Signs Most recent to 1 oldest [Reference Range]: Height 154.94 cm (12/01/17 10:51 AM) Temperature Oral 97.9 DegF [96.4-99.1 DegF] (12/01/17 10:51 AM) Blood Pressure 128/74 mmHg [90-140/60-90 mmHg] (12/01/17 10:51 AM) Peripheral Pulse 76 bpm Rate [60-100 bpm] (12/01/17 10:51 AM) Weight 88.636 kg (12/01/17 10:51 AM) Body Mass Index 36.92 m2 (12/01/17 10:51 AM) Problem List Condition Effective Dates Status Health Status Informant Morbid Active obesity(Confirmed) Allergies, Adverse Reactions, Alerts Substance Reaction Severity Status NKDA Active Medications acetaminophen-hydrocodone 325 mg-5 mg oral tablet 1 tab, PO, Q4H, PRN for pain, # 42 tab, 0 Refill(s) Start Date: 12/01/17 Stop Date: 12/08/17 Status: Ordered baclofen 10 mg oral tablet 10 mg=1 tab, PO, BID, 0 Refill(s) Start Date: 12/01/17 Status: Ordered diazepam 5 mg oral tablet 5 mg=1 tab, PO, BID, 0 Refill(s) Start Date: 12/01/17 Status: Ordered furosemide 20 mg oral tablet 20 mg=1 tab, PO, Daily, # 30 tab, 0 Refill(s) Start Date: 12/01/17 Status: Ordered gemfibrozil See Instructions, 100mg PO daily, 0 Refill(s) Start Date: 12/01/17 Status: Ordered levothyroxine 100 mcg (0.1 mg) oral tablet 100 microgram=1 tab, PO, Daily, # 30 tab, 0 Refill(s) Start Date: 12/01/17 Status: Ordered metFORMIN 500 mg oral tablet 500 mg=1 tab, PO, BID-Meals, # 60 tab, 0 Refill(s) Start Date: 12/01/17 Status: Ordered metoprolol 100 mg oral tablet, extended release 100 mg=1 tab, PO, Daily, # 30 tab, 0 Refill(s) Start Date: 12/01/17 Status: Ordered omega-3 polyunsaturated fatty acids PO, 0 Refill(s) Start Date: 12/01/17 Status: Ordered potassium chloride 0 Refill(s) Start Date: 12/01/17 Status: Ordered Results No data available for this section Immunizations No data available for this section Procedures Procedure Date Related Diagnosis Body Site Status Diabetic retinal eye exam 2017 Completed Bone density scan 2016 Completed Mammogram 2016 Completed Colonoscopy 2013 Completed Appendectomy Completed Tonsillectomy Completed Social History Social History Type Response Alcohol Never Smoking Status Former smoker; Exposure to Tobacco Smoke None; Cigarette Smoking Last 365 Days No; Reg Smoking Cessation Counseling No1 entered on: 12/01/17 1Quit smoking 16 years ago. Assessment and Plan No data available for this section
--- OUTSIDE RECORDS SUMMARY | 2019-04-18 07:58 | XMS REPORT | Summary of Care ---
Author Author [facility] General Surgery [facility] Organization [facility] General Surgery [facility] Address Unknown Phone Unavailable Encounter HQ Joentr_dante(FIN) [id number] Date(s): 01/12/18 - 01/12/18 [facility] General Surgery [facility] [address] [facility], [address] [place] [address] [phone] Discharge Disposition: Home or Self Care Attending Physician: Stanley Landin MD Referring Physician: Soraya Redding MD Vital Signs Most recent to 1 oldest [Reference Range]: Height 157.48 cm (01/12/18 11:00 AM) Temperature Oral 98.0 DegF [96.4-99.1 DegF] (01/12/18 11:00 AM) Blood Pressure 130/74 mmHg [90-140/60-90 mmHg] (01/12/18 11:00 AM) Peripheral Pulse 87 bpm Rate [60-100 bpm] (01/12/18 11:00 AM) Problem List Condition Effective Dates Status Health Status Informant Diabetes(Confirmed) Active Hypothyroid(Confirme Active d) Morbid Active obesity(Confirmed) Degenerative joint Active disease(Confirmed) Weakness of both Active lower extremities(Confirme d) Poor circulation of Active extremity(Confirmed) Spinal Active stenosis(Confirmed) Allergies, Adverse Reactions, Alerts Substance Reaction Severity Status NKDA Active Medications No Known Medications Results No data available for this section Immunizations No data available for this section Procedures Procedure Date Related Diagnosis Body Site Status Laparoscopic repair of ventral hernia with 12/28/17 Completed prosthesis Diabetic retinal eye exam 2017 Completed Bone density scan 2016 Completed Mammogram 2016 Completed Colonoscopy 2013 Completed Appendectomy Completed Cataract surgery Completed Tonsillectomy Completed Social History Social History Type Response Alcohol Never Smoking Status Former smoker; Exposure to Tobacco Smoke None; Cigarette Smoking Last 365 Days No; Reg Smoking Cessation Counseling No1 entered on: 01/12/18 1Quit smoking 16 years ago. Assessment and Plan No data available for this section
--- OUTSIDE RECORDS SUMMARY | 2019-04-18 07:58 | XMS REPORT | Summary of Care ---
Author Author [facility] Outpatient Imaging - [facility] [place] Address Unknown Phone Unavailable Encounter HQ Maricruz(FIN) [id number] Date(s): 08/17/18 - 08/17/18 [facility] Outpatient [facility] - [place] [address] [facility] [place], [address] [place] [phone] Encounter Diagnosis Hemoptysis (Final) - 08/19/18 Abnormal weight loss (Final) - Edema, unspecified (Final) - Personal history of nicotine dependence (Final) - Type 2 diabetes mellitus without complications (Final) - Acute pharyngitis, unspecified (Final) - Discharge Disposition: Home or Self Care Attending Physician: Soraya Redding MD Referring Physician: Soraya Redding MD Vital Signs No data available for this section Problem List Condition Effective Dates Status Health Status Informant Diabetes(Confirmed) Active Hypothyroid(Confirme Active d) Morbid Active obesity(Confirmed) Degenerative joint Active disease(Confirmed) Weakness of both Active lower extremities(Confirme d) Poor circulation of Active extremity(Confirmed) Spinal Active stenosis(Confirmed) Allergies, Adverse Reactions, Alerts No Known Medication Allergies Medications No data available for this section [...]
--- OUTSIDE RECORDS SUMMARY | 2019-04-18 07:58 | XMS REPORT | Summary of Care ---
Author Author [facility] [place] Organization [facility] [place] Address Unknown Phone Unavailable Encounter HQ Maricruz(FIN) [id number] Date(s): 11/08/17 - 11/08/17 [facility] Out[facility] [place] [address] [place], [place] [address] [phone] Encounter Diagnosis Unspecified abdominal hernia without obstruction or gangrene (Final) - 11/12/17 Cellulitis of abdominal wall (Final) - Essential (primary) hypertension (Final) - Diverticulosis of intestine, part unspecified, without perforation or abscess wi thout bleeding (Final) - Calculus of gallbladder without cholecystitis without obstruction (Final) - Discharge Disposition: Home or Self Care Attending Physician: Soraya Redding MD Vital Signs No data available for this section Problem List Condition Effective Dates Status Health Status Informant Diabetes(Confirmed) Active Hypothyroid(Confirme Active d) Morbid Active obesity(Confirmed) Degenerative joint Active disease(Confirmed) Weakness of both Active lower extremities(Confirme d) Poor circulation of Active extremity(Confirmed) Spinal Active stenosis(Confirmed) Allergies, Adverse Reactions, Alerts Substance Reaction Severity Status NKDA Active Medications No data available for this section [...]
[2019-04-18 13:05] VITALS: BP 136/57
== END | disposition home or self-care (01) ==
LOC: OR 07:47
PROVIDERS: ATTEND Internal Medicine Gastroenterology
DX: C18.0 Malignant neoplasm of cecum (principal); K29.70 Gastritis, unspecified, without bleeding; K57.40 Diverticulitis of both small and large intestine with perforation and abscess without bleeding; K44.9 Diaphragmatic hernia without obstruction or gangrene; K29.80 Duodenitis without bleeding; K31.89 Other diseases of stomach and duodenum; K59.00 Constipation, unspecified; K64.8 Other hemorrhoids; R93.89 Abnormal findings on diagnostic imaging of other specified body structures; E11.9 Type 2 diabetes mellitus without complications; E03.9 Hypothyroidism, unspecified; R63.4 Abnormal weight loss; Z01.810 Encounter for preprocedural cardiovascular examination; Z79.84 Long term (current) use of oral hypoglycemic drugs; Z68.35 Body mass index [BMI] 35.0-35.9, adult; Z80.0 Family history of malignant neoplasm of digestive organs; Z83.79 Family history of other diseases of the digestive system
CPT/HCPCS: 36415 ×2; 43236; 43239; 45380; 45381; 82948; 85025; 88305; 88312; 93005; J1610; J2001; J2704; 45378